=== PATIENT | female | born 1940 | race Two or more races ===

== ENCOUNTER 2019-05-26 16:44 | Emergency (ER) | payer MEDICAID ==
[~2019-05-26] VITALS: Ht 152.4 cm; Wt 56.7 kg
--- NOTE | 2019-05-26 16:49 | NUR ---
BIB D[facility] from [facility] "Dialysis access NOT functioning", TO ER BED 11, HOOKED TO MONITOR, CHANGED TO HOSP GOWN, PROVIDED W WARM BLANKET, PATIENT AOx 4, PATIENT CONNECTED TO 2LPM VIA NC. KEPT WARM AND COMFORTABLE. AWAITING MD SINGLETARY
--- NOTE | 2019-05-26 17:02 | NUR ---
DR CAST AT BEDSIDE
[2019-05-26] MEDS ORDERED: CEFTRIAXONE 1GM BAG (ER ONLY) 50 ML IV ONE ×2 (17:44→19:54)
[2019-05-26 17:50] LABS: BASOPHILS # (AUTO) 0.1 /CMM (0.0-0.2); BASOPHILS % (AUTO) 0.3 % (0.0-2.0); EOSINOPHILS % (AUTO) 1.7 % (0.0-6.0); HEMATOCRIT 40 % (33-45); LYMPHOCYTES # (AUTO) 0.4 /CMM (0.8-4.8); LYMPHOCYTES % (AUTO) 2.1 % (20.0-44.0); MEAN CORPUSCULAR HGB CONC 30 g/dl (31.0-36.0); MEAN CORPUSCULAR VOLUME 92 fL (82-100); MONOCYTES # (AUTO) 0.7 /CMM (0.1-1.30); MONOCYTES % (AUTO) 3.5 % (2.0-12.0); NEUTROPHILS # (AUTO) 17.7 /CMM (1.8-8.9); NEUTROPHILS % (AUTO) 92.4 % (43.0-81.0); PLATELET COUNT (AUTO) 178 /CMM (150-450); RED BLOOD CELL COUNT(AUTO) 4.32 MIL/uL (4.0-5.2); WHITE BLOOD COUNT (AUTO) 19.1 K/uL (4.3-11.0)
[2019-05-26 18:00] LABS: APPEARANCE,URINE Cloudy (CLEAR); BILIRUBIN,URINE SMALL (NEGATIVE); BLOOD, URINE Large Ery/uL (NEGATIVE); COLOR,URINE Yellow (YELLOW); KETONES,URINE Negative (NEGATIVE); LEUKOCYTE ESTERASE ,URINE Trace (NEGATIVE); NITRITE, URINE Negative (NEGATIVE); PROTEIN,URINE >=300 mg/dl (NEGATIVE); UGLUCOSE Negative (NEGATIVE); UROBILINOGEN,URINE 0.2 EU/dL (0.2)
[2019-05-26] MEDS ORDERED: CEFTRIAXONE 1 G in IV D5W 50 ML IV ONE (18:00)
[2019-05-26 18:15] LABS: BACTERIA,URINE 1+ /HPF (None Seen); SQUAMOUS EPITHELIAL CELL,UR Few /HPF (None Seen)
[2019-05-26 18:25] LABS: ALANINE AMINOTRANSFERASE 10 U/L (12-78); ALBUMIN 2.1 g/dL (3.4-5.0); ALKALINE PHOSPHATASE 113 U/L (46-116); ASPARTATE AMINOTRANSFERASE 13 U/L (15-37); BILIRUBIN,DIRECT 0.1 mg/dL (0.0-0.2); BILIRUBIN,TOTAL 0.3 mg/dL (0.2-1.0); CALCIUM, SERUM 7.6 mg/dL (8.5-10.1); CARBON DIOXIDE 24 mmol/L (21-32); CHLORIDE 105 mmol/L (98-107); CREATININE 3.2 mg/dL (0.6-1.3); GLUCOSE 122 mg/dL (74-106); POTASSIUM 4.4 mmol/L (3.5-5.1); SODIUM SERUM 138 mmol/L (136-145); TOTAL PROTEIN, SERUM 5.2 g/dL (6.4-8.2); UREA NITROGEN, BLOOD 43 mg/dL (7-18)
--- NOTE | 2019-05-26 18:55 | NUR ---
PAGED DR. PHIPPS.
--- NOTE | 2019-05-26 19:13 | NUR ---
DIANE BUSTOS FROM [facility] CALLED AND PT IS CAPITATED AT [facility]. GATHERED INFO AND WILL BE ARRANGING TRANSPORT. DIANE NUMBER [phone].
--- NOTE | 2019-05-26 19:19 | NUR ---
DR. TUCKER FROM [facility] CALLED.
--- NOTE | 2019-05-26 19:54 | NUR ---
PER PT'S DAUGTHER, PT RECEIVED 2GM ROCEPHINE AT HOME DAILY FOR UTI. SINCE PT IS AT ER [facility] NURSE UNABLE TO GIVE ATB. PT ALREADY RECEIVED 1GM ROCEPHIN. MADE AWARE AND RECEIVED VERBAL ORDER TO ADD ANOTHER ROCEPHINE 1GM
[2019-05-26] MEDS ORDERED: CEFTRIAXONE 1GM BAG (ER ONLY) 1 GM/50 ML PIGGYBACK IV ONE (20:30)
--- NOTE | 2019-05-26 21:00 | NUR ---
Patient accepted to [facility] by Dr Villarreal. Room#203-B. # for report [phone] / [phone]. Ambulance eta 2300
--- NOTE | 2019-05-26 23:07 | NUR ---
CALLED [facility] FOR REPORT. NURSE WILL CALL BACK FOR REPORT.
--- NOTE | 2019-05-26 23:24 | NUR ---
REPORT GIVEN TO ARUN CARR AT [facility]. AWAITING PT'S TRANSPORT
[2019-05-27 00:10] VITALS: BP 92/48
--- NOTE | 2019-05-27 00:13 | NUR ---
[facility]25 AT PT BEDSIDE FOR PT TRANSPORT TO [facility]. REPORT GIVEN.
== END 2019-05-27 00:15 | disposition short-term general hospital (02) ==
LOC: ER 16:45
DX: I50.9 Heart failure, unspecified (principal); N18.6 End stage renal disease; D63.1 Anemia in chronic kidney disease; Z99.2 Dependence on renal dialysis; Z98.890 Other specified postprocedural states
CPT/HCPCS: 36415; 71045; 80048; 80076; 81001; 84484; 85025; 85730; 93005 ×2; 96365; 96376; 99285; J0696 ×3; J7060; 81000-TC